=== PATIENT | male | born 1960 | race Caucasian/White ===

== ENCOUNTER → 2022-12-05 | Day surgery (SDC) | payer SELFPAY ==
[~2022-12-05] MED LIST: FENTANYL CITRATE/PF 100MCG/2 ML INJ ONE; LACTATED RINGER'S 1,000 ML ONE; METFORMIN HCL500 MG PO; MIDAZOLAM HCL 2 MG/2 ML VIAL ONE; OR PHACO EYE KIT ONE; PREOP PHACO EYE KIT ONE
[2022-12-05 08:33] VITALS: BP 146/89
== END | disposition home or self-care (01) ==
LOC: OR 05:32
PROVIDERS: ATTEND Ophthalmology
DX: H25.12 Age-related nuclear cataract, left eye (principal); Z79.84 Long term (current) use of oral hypoglycemic drugs
CPT/HCPCS: 36415; 66984; 82948; J2250; J3010; J7121; V2632